=== PATIENT | male | born 1990 | race Caucasian/White ===

== ENCOUNTER 2023-02-24 06:36 | Emergency (ER) | payer MEDICAID, SELFPAY ==
--- NOTE | ~2023-02-24 | CT_ITS ---
EXAMINATION: CT ABDOMEN AND PELVIS WITHOUT CONTRAST CLINICAL INFORMATION: Left groin pain and hematuria. Question kidney stone. COMPARISON: None available. TECHNIQUE: Multidetector volumetric imaging was performed from the superior aspect of the liver through the pubic symphysis. Sagittal and coronal reformatted images were obtained on the technologist's workstation. This CT examination was performed using dose optimization techniques as appropriate, variously including the following: *Automated exposure control *Adjustment of mA and/or kV according to patient size (this includes techniques or standardized protocols for targeted exams where dose is matched to indication/reason for exam; i.e. extremities or head) *Use of iterative reconstruction technique DLP: 497 mGy-cm FINDINGS: LUNG BASES: The visualized lung bases are unremarkable. LIVER, GALLBLADDER, AND BILIARY TREE: The liver is normal in size, shape, and attenuation. No focal hepatic lesion or biliary ductal dilatation is present. The gallbladder is unremarkable with no evidence of radiopaque gallstones, gallbladder wall thickening, or obvious pericholecystic inflammatory changes. PANCREAS: Unremarkable. SPLEEN: Unremarkable. ADRENAL GLANDS: Unremarkable. KIDNEYS AND URETERS: The kidneys are normal in size, shape, and attenuation. No hydronephrosis, hydroureter, or calculi seen. No perinephric stranding. BLADDER: Unremarkable. GASTROINTESTINAL TRACT: The small and large bowel are unremarkable. The appendix is unremarkable. ABDOMINAL WALL: No significant hernia is appreciated. LYMPH NODES: Normal. VASCULAR: Unremarkable. PELVIC VISCERA: There is a small 2 mm calcification in the central prostate gland. It is difficult to exclude a stone in the prostatic urethra. Clinical correlation recommended. OSSEOUS STRUCTURES: Unremarkable. CT/CT abdomen pelvis wo IV con IMPRESSION: No renal or ureteral stone or hydronephrosis seen. Small 2 mm calcification in the central prostate gland which could possibly represent a stone in the prostatic urethra. Clinical correlation recommended. Fleischner guidelines were followed.
--- NOTE | ~2023-02-24 | US_ITS ---
EXAMINATION: US SCROTUM CLINICAL INFORMATION: Left groin pain. Question hernia.. COMPARISON: None available. TECHNIQUE: A sonogram of the scrotum was performed assessing contreras-scale appearance and color Doppler flow. Spectral Doppler analysis of the arterial and venous flow were performed in the testes bilaterally. FINDINGS: RIGHT: Right testicle measures 4.6 x 2.5 x 3 cm, volume 18 mL. No focal testicular parenchymal lesions are visualized. Spectral Doppler analysis of the arterial and venous flow is normal in the right testis. Right epididymal head is normal in size. No varicocele small right hydrocele. No right varicocele. Right epididymal Doppler flow is normal. There is a small right appendix testis. LEFT: Left testicle measures 3.1 x 2.2 x 3.1 cm, volume 11.2 mL. No focal testicular parenchymal lesions are visualized. Spectral Doppler analysis of the arterial and venous flow is normal in the left testis. Left epididymal head is normal in size. No varicocele. Moderate left hydrocele. This appears slightly complex with dependent echogenic debris. There is a small calcification or scrotal dayna likely related to old trauma or infection. Left epididymal Doppler flow is normal. There is a small left inguinal hernia measuring 2.4 cm. US/US scrotum IMPRESSION: Small left inguinal hernia measuring 2.4 cm. Moderate complex left hydrocele.
--- NOTE | ~2023-02-24 | US_ITS ---
EXAMINATION: US SCROTUM CLINICAL INFORMATION: Left groin pain. Question hernia.. COMPARISON: None available. TECHNIQUE: A sonogram of the scrotum was performed assessing contreras-scale appearance and color Doppler flow. Spectral Doppler analysis of the arterial and venous flow were performed in the testes bilaterally. FINDINGS: RIGHT: Right testicle measures 4.6 x 2.5 x 3 cm, volume 18 mL. No focal testicular parenchymal lesions are visualized. Spectral Doppler analysis of the arterial and venous flow is normal in the right testis. Right epididymal head is normal in size. No varicocele small right hydrocele. No right varicocele. Right epididymal Doppler flow is normal. There is a small right appendix testis. LEFT: Left testicle measures 3.1 x 2.2 x 3.1 cm, volume 11.2 mL. No focal testicular parenchymal lesions are visualized. Spectral Doppler analysis of the arterial and venous flow is normal in the left testis. Left epididymal head is normal in size. No varicocele. Moderate left hydrocele. This appears slightly complex with dependent echogenic debris. There is a small calcification or scrotal dayna likely related to old trauma or infection. Left epididymal Doppler flow is normal. There is a small left inguinal hernia measuring 2.4 cm. US/US scrotum doppler IMPRESSION: Small left inguinal hernia measuring 2.4 cm. Moderate complex left hydrocele.
[2023-02-24 06:44] VITALS: BP 128/80; PULSE 65; RESP 16; TEMP 36.8; O2SAT 97; BMI 23.0
--- NOTE | 2023-02-24 07:14 | ED_ITS ---
HPI - Male Genitourinary General Chief complaint: General Medical Stated complaint: quest hernia groin pain lump Time Seen by Provider: 02/24/23 06:44 Source: patient Mode of arrival: ambulatory Limitations: language barrier (Romanian Speaking ) History of Present Illness HPI Narrative: 32yoM with a PMHx asthma, anxiety and depression who is presenting to the ER with complaints of left groin pain has been present for approximately 1 week. 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 He denies any direct injury to that site. Significant other at bedside reports that his urine has been a little darker in color although it is normal today. He reports he has never had this pain in the past. He denies any fevers, chills, nausea or vomiting, flank pain, back pain, abdominal pain, dysuria hematuria, abnormal penile discharge, rashes or any other symptoms complaints or concerns at this time. MD Complaint: other (Left groin pain) Onset (ago): week(s) (1) Duration: constant Location: left inguinal region Severity: mild Quality: aching Relieving factors: none Exacerbating factors: palpation and movement Context: lifting Associated symptoms: Reports denies other symptoms Related Data Sexually active: Yes Allergies Allergy/AdvReac Type Severity Reaction Status Date / Time risperidone [From RISPERDAL] Allergy Unknown UNKNOWN Unverified 07/01/20 18:59 Review of Systems Review of Systems: Constitutional : No Weight loss, No Fever, No Chills, No Night Sweats, No Fatigue, NoMalaise ENT/Mouth: No ear pain, No sore throat, No Difficulty swallowing Cardiovascular : No Chest Pain, No SOB, No Dyspnea on Exertion, No Orthopnea, NoEdema, No Palpitations Respiratory : No Cough, No Sputum, No Wheezing, No Dyspnea Gastrointestinal : No Nausea, No Vomiting, No Diarrhea, + abdominal Pain, No Hematochezia, No Melena Genitourinary : + left groin pain, No testicular pain, No irregular bleeding, No Dysuria, No Urinary Frequency, No Hematuria,No Urinary Incontinence, No Urgency, No Flank Pain Musculoskeletal : No joint pain, No Myalgias, No Joint Swelling Skin : No Skin Lesions, No rash Neuro : No Weakness, No Numbness, No Paresthesias, No Loss of Consciousness, NoDizziness, No Headache Psych : No Social Issues, Heme/Lymph: No Bruising, No Bleeding,No Lymphadenopathy Endocrine : No Polyuria, No Polydipsia, No Temperature Intolerance PATIENT DENIES ANY THOUGHTS OF STDS Yes all other systems are reviewed and are negative [facility] Past Medical History Attestation statement: The following information was validated with the patient. Source: old records reviewed, obtained from family and nursing notes reviewed Social History Social History Smoked in Last 30 Days: No Use of substances other than those prescribed or required for medical reasons: Yes Substance Use Type: Marijuana Advance Directives: No Advance Directives Information Provided: No Physical Exam Vital Signs: Vital Signs: Last Vital Signs Temp 98.3 F 02/24/23 06:44 Pulse 58 02/24/23 09:20 Resp 16 02/24/23 09:20 BP 112/62 02/24/23 09:20 Pulse Ox 99 02/24/23 09:20 O2 Del Method Room Air 02/24/23 09:20 BMI result Body Mass Index 23.0 vital signs have been reviewed as normal and appeared to be correct. Blood pressure normal. Heart rate normal. Respiration rate normal. Temperature normal. Oxygen saturation normal. Appearance: Alert. Oriented X3. No acute distress. Head: Normal external exam. Normocephalic. Atraumatic. Eyes: PERRLA. EOMI. Conjunctiva and sclera normal. Eyelids normal. ENT: Pharynx normal. Uvula midline. Moist mucous membranes. Neck: Normal inspection. Neck supple. FROM. No adenopathy. No meningeal signs. CVS: Normal heart rate and rhythm. Heart sound normal. No murmurs noted. Pulses normal throughout. Respiratory: No respiratory distress. Painless inspiration. Breath sounds normal. No wheezes/rales/rhonchi noted. Chest nontender. No accessory muscle usage noted or decreased air movement noted. Abdomen: Soft and nontender. Bowel sounds normal in all 4 quadrants. No distention noted. No organomegaly noted. No visible injury noted. : Chaperoned by MICH Nino. Normal external exam. No masses/lumps/ecchymosis/edema/erythema/lacerations/lesions/vesicles/induration or tenderness noted. No hernia noted. No inguinal lymphadenopathy noted. Al though patient reports + left inguinal pain. Normal penis free of discharge. The scrotum is normal. Testicles are both descended bilaterally and appear normal. + left sided hydrocele. No right sided hydrocele noted. No scrotal mass/swelling noted. No varicocele. Epididymides normal. No blue dot sign. Back: No CVA tenderness. Full range of motion noted. Skin: Skin warm and dry. Normal skin color. Normal skin turgor. No rashes/lesions/lacerations noted. Extremities: Extremities exhibit normal range of motion. Extremities nontender. Neuro: Oriented X 3. No motor deficit. No sensory deficit. Reflexes normal. Course Course Course Narrative: 7am - 32yoM presenting with left groin pain believes he might have a hernia due to he has felt it. On exam there is no obvious hernia on my exam. No inguinal lymphadenopathy. He is noted to have of left hydrocele. Right scrotum appears normal. No lesions or discharge from the penis. Dealer Sales Manager was present my PA student at bedside. also at bedside. Patient's abdomen is soft nontender. No CVA tenderness is noted. Differential diagnosis includes left inguinal hernia versus UTI versus kidney stone. I considered test torsion; F Gangrene; incarc hernia; & other med/surg emerg but the hx, exam & data did not support the diagnoses. The pt was advised that some diseases present atypically. Plan: UA and scrotal/groin ultrasound. And re-evaluate. Reevaluation(s) Reevaluation #1: Labs reviewed and labs are all within normal limits. Left scrotal/inguinal ultrasound revealed small left inguinal hernia measuring 2.4 cm in a moderate complex left hydrocele. CT scan of abdomen pelvis without IV revealed possible 2 mm calcification in the central prostate gland which could possibly represent a stone in the prostatic urethra. Although when I went back into the room the patient has the eloped. I called the patient and he reported he had to go to work and I told him all his diagnosis he understands that he should follow-up with Urology and General surgery especially Urology due to his large hydrocele and he wants to continue having kids. Patient understood this and agrees to come back for his discharge paperwork either today or tomorro w and they will be in the motel front desk clerk. Time: 09:22 Medical Decision Making Lab Data MDM Lab Attestation statement: I reviewed the patient's lab results. 02/24/23 09:25 02/24/23 09:25 Labs: Lab Results 02/24/23 02/24/23 02/24/23 Range/Units 08:06 09:25 09:25 WBC 10.5 (4.8-10.8) X10*3/uL RBC 4.77 (4.60-5.80) X10*6/uL Hgb 13.9 L (14.0-18.0) g/dl Hct 42.0 (42.0-52.0) % MCV 88.1 (80.0-98.0) fL MCH 29.1 (27.0-33.0) pg MCHC 33.1 (31.0-36.0) g/dl RDW 12.9 (11.0-16.0) % Plt Count 218 (160-400) X10*3/uL MPV 10.9 (9.4-12.4) fL Immature Gran % (Auto) 0.4 (0.0-0.4) % Neut % (Auto) 69.2 (45-73) % Lymph % (Auto) 21.6 (20-40) % [place] % (Auto) 7.4 (2-11) % Eos % (Auto) 1.0 (0-4) % Baso % (Auto) 0.4 (0-2) % Lymph # (Auto) 2.3 (1.2-4.9) X10*3/uL [place] # (Auto) 0.8 (0.1-1.2) X10*3/uL Eos # (Auto) 0.1 (0.0-0.4) X10*3/uL Baso # (Auto) 0.0 (0.0-0.2) X10*3/uL Abs Immat Gran (auto) 0.04 H (0.00-0.03) X10*3/uL Absolute Neuts (auto) 7.3 (2.0-8.3) x10*3/uL Absolute Nucleated RBC 0.000 (0.0-0.012) X10*3/uL Nucleated RBC % (auto) 0.0 (0.0-0.2) /100WBC Sodium 142 (135-145) mmol/L Potassium 4.5 (3.3-5.1) mmol/L Chloride 110 H (96-108) mmol/L Carbon Dioxide 26 (22-29) mmol/L Anion Gap 11 L (12-20) BUN 12 (9-16) mg/dL Creatinine 1.01 (0.5-1.4) mg/dL Estim Creat Clear Calc 105.7 Estimated GFR > 60 Random Glucose 93 (60-115) mg/dL Calcium 9.0 (8.4-10.2) mg/dL Magnesium 2.0 (1.6-2.6) mg/dL Total Bilirubin 0.5 (0.0-1.0) mg/dL AST 16 (5-37) U/L ALT 15 (0-40) U/L Alkaline Phosphatase 80 (39-117) U/L Total Protein 6.6 (6.5-8.0) g/dL Albumin 4.1 (3.5-5.0) g/dL Urine Color Yellow Urine Appearance Clear Urine pH 6.0 (5.0-9.0) Ur Specific [place] 1.020 (1.005-1.025) Urine Protein Negative (Neg-Trace) mg/dL Urine Glucose (UA) Negative (Negative) mg/dL Urine Ketones Negative (Negative) mg/dL Urine Blood Small (1+) H (Negative) Urine Nitrite Negative (Negative) Ur Leukocyte Esterase Negative (Negative) Urine RBC 3-5 H (0-2) /HPF Urine WBC 0-5 (0-5) /HPF Ur Squamous Epith Cells 0-2 (0-2) /HPF Urine Bacteria None Seen (None Seen) Hyaline Casts 0-2 (0-2) /LPF Independent Interpretation I performed an independent interpretation of an: Ultrasound (Reviewed myself agreeable with radiologist report) and CT Scan (Reviewed myself agreeable with radiologist report) Radiology Impression Discussion of test interpretation with radiology: I have reviewed the radiologist's reading. Radiologist Impression: FINDINGS: LUNG BASES: The visualized lung bases are unremarkable.? LIVER, GALLBLADDER, AND BILIARY TREE: The liver is normal in size, shape, and attenuation. No focal hepatic lesion or biliary ductal dilatation is present. The gallbladder is unremarkable with no evidence of radiopaque gallstones, gallbladder wall thickening, or obvious pericholecystic inflammatory changes.? PANCREAS: Unremarkable.? SPLEEN: Unremarkable.? ADRENAL GLANDS: Unremarkable.? KIDNEYS AND URETERS: The kidneys are normal in size, shape, and attenuation. No hydronephrosis, hydroureter, or calculi seen. No perinephric stranding. ? BLADDER: Unremarkable.? GASTROINTESTINAL TRACT: The small and large bowel are unremarkable. The appendix is unremarkable.? ABDOMINAL WALL: No significant hernia is appreciated.? LYMPH NODES: Normal. VASCULAR: Unremarkable. PELVIC VISCERA: There is a small 2 mm calcification in the central prostate gland. It is difficult to exclude a stone in the prostatic urethra. Clinical correlation recommended.? OSSEOUS STRUCTURES: Unremarkable.? CT/CT abdomen pelvis wo IV con IMPRESSION: No renal or ureteral stone or hydronephrosis seen. Small 2 mm calcification in the central prostate gland which could possibly represent a stone in the prostatic urethra. Clinical correlation recommended. ? Fleischner guidelines were followed. FINDINGS: RIGHT: Right testicle measures 4.6 x 2.5 x 3 cm, volume 18 mL. No focal testicular parenchymal lesions are visualized. Spectral Doppler analysis of the arterial and venous flow is normal in the right testis. Right epididymal head is normal in size. No varicocele small right hydrocele. No right varicocele. Right epididymal Doppler flow is normal. There is a small right appendix testis. LEFT: Left testicle measures 3.1 x 2.2 x 3.1 cm, volume 11.2 mL. No focal testicular parenchymal lesions are visualized. Spectral Doppler analysis of the arterial and venous flow is normal in the left testis. Left epididymal head is normal in size. No varicocele. Moderate left hydrocele. This appears slightly complex with dependent echogenic debris. There is a small calcification or scrotal dayna likely related to old trauma or infection. Left epididymal Doppler flow is normal. There is a small left inguinal hernia measuring 2.4 cm. US/US scrotum IMPRESSION: Small left inguinal hernia measuring 2.4 cm. Moderate complex left hydrocele. Discharge Plan Discharge Clinical Impression: Left hydrocele, Inguinal hernia, left Patient Disposition: Home, Self-Care Instructions: Hydrocele (ED), Inguinal Hernia (ED) Referrals: [facility] [place] General Surgeons [Provider Group] (Call to make a follow-up appointment for your inguinal hernia) [facility] [place] Urology Services [Provider Group] (Call to make a follow-up appointment for your hydrocele) Name,MD Jose Cruz [Primary Care Provider] - 2 days Print Language: Romanian
--- NOTE | 2023-02-24 07:16 | PC.NURSE ---
assumed care of this pt at 0700. pt a&o x4, reporting 11/10 pain to the left groin. pt resting quietly on stretcher with friend at bedside. in no apparent distress, awaiting ultrasound. marry
[2023-02-24 08:27] LABS: Appearance Urine Clear; Color Urine Yellow; Glucose Urine UA Negative (Negative); Leukocyte Esterase Urine Negative (Negative); Nitrite Urine Negative (Negative); UMIC TRIGGER UACC YES; Urine Blood Small (1+) (Negative); Urine Ketones Negative (Negative); Urine Protein Negative (Neg-Trace)
[2023-02-24 08:39] LABS: Bacteria Urine None Seen (None Seen); Hyaline Casts Urine 0-2 /LPF (0-2); Squamous Epithelial Cell Urine 0-2 /HPF (0-2); WBC Urine 0-5 /HPF (0-5)
[2023-02-24 09:20] VITALS: BP 112/62; PULSE 58; RESP 16; O2SAT 99
[2023-02-24 09:29] LABS: MANUAL DIFF FLAG NO
[2023-02-24 09:47] LABS: Alanine Aminotransferase 15 U/L (0-40); Albumin Level 4.1 g/dL (3.5-5.0); Alkaline Phosphatase 80 U/L (39-117); Anion Gap 11 (12-20); Aspartate Amino Transferase 16 U/L (5-37); Bilirubin Total 0.5 mg/dL (0.0-1.0); Blood Urea Nitrogen 12 mg/dL (9-16); Carbon Dioxide 26 mmol/L (22-29); Chloride 110 mmol/L (96-108); Creatinine Clr Calc Pharmacy 105.7; Estimated Glomerular Filt Rate > 60; Glucose Random 93 mg/dL (60-115); Potassium 4.5 mmol/L (3.3-5.1); Sodium 142 mmol/L (135-145); Total Protein 6.6 g/dL (6.5-8.0)
[2023-02-24 09:48] LABS: Basophils Percent Auto 0.4 % (0-2); Eosinophils Absolute Auto 0.1 X10*3/uL (0.0-0.4); Hemoglobin 13.9 g/dl (14.0-18.0); Imm Gran Abs Auto 0.04 X10*3/uL (0.00-0.03); Imm Gran Pct Auto 0.4 % (0.0-0.4); Lymphocytes Absolute Auto 2.3 X10*3/uL (1.2-4.9); Lymphocytes Percent Auto 21.6 % (20-40); Mean Corpuscular HGB Conc 33.1 g/dl (31.0-36.0); Mean Corpuscular Hemoglobin 29.1 pg (27.0-33.0); Mean Corpuscular Volume 88.1 fL (80.0-98.0); Mean Platelet Volume 10.9 fL (9.4-12.4); Monocytes Absolute Auto 0.8 X10*3/uL (0.1-1.2); Monocytes Percent Auto 7.4 % (2-11); Neutrophils Absolute Auto 7.3 x10*3/uL (2.0-8.3); Neutrophils Percent Auto 69.2 % (45-73); Platelet Count 218 X10*3/uL (160-400); Red Blood Count 4.77 X10*6/uL (4.60-5.80); Red Cell Distribution Width 12.9 % (11.0-16.0); White Blood Count 10.5 X10*3/uL (4.8-10.8)
--- NOTE | 2023-02-24 11:13 | PC.NURSE ---
pt agitated/anxious asking for process to hurry up because of a side job he has to get to. pt ended up eloping before results of CT scan came bask. MICH [place] talked to pt over phone about results and pt agreed to come back later today or early tomorrow for discharge paperwork/education/referral to urology.
== END 2023-02-24 11:16 | disposition home or self-care (01) ==
PROVIDERS: Physician Assistant Medical; Emergency Provider Emergency Medicine Emergency Medical Services; PCP Internal Medicine Geriatric Medicine
DX: N43.3 Hydrocele, unspecified (principal); K40.90 Unilateral inguinal hernia, without obstruction or gangrene, not specified as recurrent; R10.32 Left lower quadrant pain
CPT/HCPCS: 36415; 74176; 76870; 80053; 81001; 83735; 85025; 93975; 99284

== ENCOUNTER → 2023-03-13 10:53 | Outpatient (BNVA) | payer MEDICAID, SELFPAY | PROVIDERS: PCP Internal Medicine Geriatric Medicine; Referring Provider Emergency Medicine; Visit Provider Surgery | DX: K40.90 Unilateral inguinal hernia, without obstruction or gangrene, not specified as recurrent (principal) | CPT/HCPCS: 99202 ==

== ENCOUNTER 2023-08-16 11:20 | Emergency (ER) | payer MEDICAID, SELFPAY ==
--- NOTE | ~2023-08-16 | XR_ITS ---
EXAMINATION: XR CHEST CLINICAL INFORMATION: Chest pain after fall COMPARISON: None available. TECHNIQUE: 2 views of the chest were obtained. FINDINGS: No significant abnormality is noted involving the heart, lungs, mediastinum, bony thorax or soft tissues. XR/XR chest 2V IMPRESSION: Unremarkable examination.
--- NOTE | 2023-08-16 11:22 | ECG_ITS ---
Test Reason : CP Blood Pressure : / mmHG Vent. Rate : 083 BPM Atrial Rate : 083 BPM P-R Int : 132 ms QRS Dur : 098 ms QT Int : 350 ms P-R-T Axes : 065 084 037 degrees QTc Int : 411 ms Normal sinus rhythm with sinus arrhythmia Minimal voltage criteria for LVH, may be normal variant ( [place] product ) Abnormal ECG No previous ECGs available Referred By: Generic ED Physician Electronically Signed By:MAYA FAJARDO MD
[2023-08-16 11:36] VITALS: BP 133/81; PULSE 99; RESP 20; TEMP 36.9; O2SAT 100; BMI 27.3
--- NOTE | 2023-08-16 11:40 | ED.CHESTPAIN ---
HPI - Chest Pain General Chief Complaint: Fall Stated Complaint: fell on stairs chest and rib pain Time Seen by Provider: 08/16/23 11:46 Source: patient Mode of arrival: ambulatory Limitations: no limitations History of Present Illness HPI narrative: Patient is a 33 year old assigned male at with a history of an enlarged heart presenting to the emergency department today with left sided chest pain. Patient states that he was coming down the stairs at his place, fell, and now has left sided chest pain. Patient states that he did use cocaine 2 days ago. Patient states that he did not hit his head or have any loss of consciousness. Patient states that he was told when he was 13 years old that he has a large heart. Patient denies any dizziness, lightheadedness, abdominal pain, nausea, vomiting, fever, chills, blurry vision, double vision, loss of vision, chest pain, difficulty breathing, shortness of breath, back pain, night sweats, pain with urination, increased urinary frequency, increased urinary urgency, blood in his urine or stool, syncope or a near syncopal episode, bowel incontinence, bladder incontinence, bowel retention, bladder retention, or any other complaints at this time. MD complaint: chest pain Onset (ago): hour(s) Pain radiation: none Treatment prior to arrival: none Related Data Home Medications Medication Instructions Recorded Confirmed No Known Home Meds 03/13/23 04/24/23 Allergies Allergy/AdvReac Type Severity Reaction Status Date / Time risperidone [From RISPERDAL] Allergy Unknown UNKNOWN Unverified 03/13/23 11:04 Review of Systems Constitutional: Constitutional: Reports no additional constitutional complaints, Denies chills, Denies fever(s) and Denies night sweats Eyes: Eyes: Reports no additional eye complaints, Denies blurry vision, Denies change in vision, Denies diplopia, Denies eye discharge, Denies loss of vision and Denies eye pain ENT: Denies dizziness Cardiovascular: Cardiovascular: Reports no additional cardiovascular complaints, Reports chest pain, Denies lightheadedness, Denies Loss of Consciousness and Denies dyspnea Respiratory: Respiratory: Reports no additional respiratory complaints and Denies dyspnea Gastrointestinal: Gastrointestinal: Reports no additional gastrointestinal complaints, Denies abdominal pain, Denies melena, Denies hematochezia, Denies change in bowel habits and Denies change in stool character Genitourinary: Genitourinary: Reports no additional male genitourinary complaints, Denies hematuria, Denies oliguria, Denies difficulty urinating, Denies dysuria, Denies urinary frequency, Denies urinary hesitancy, Denies urinary incontinence and Denies urinary urgency Musculoskeletal: Musculoskeletal: Reports no additional musculoskeletal complaints, Denies numbness and Denies tingling Neurologic: Denies dizziness, Denies loss of vision, Denies numbness and Denies tingling Psychiatric: Psychiatric: Reports no additional psychiatric complaints Endocrine: Endocrine: Reports no additional endocrine complaints Hematologic/Lymphatic: Hematologic/Lymphatic: Reports no additional hematologic/lymphatic complaints Allergic/Immunologic: Allergic/Immunologic: Reports no additional allergic/immunologic complaints [facility] Past Medical History Attestation statement: The following information was validated with the patient. Source: old records reviewed and nursing notes reviewed Medical History Anxiety Depression Asthma Surgical History Surgical history unknown Social History Social History Alcohol intake: never Substance Use Type: Marijuana Advance Directives: No Advance Directives Information Provided: No Physical Exam Vital Signs: Vital Signs: Last Vital Signs Temp 98.2 F 08/16/23 15:40 Pulse 68 08/16/23 15:40 Resp 17 08/16/23 15:40 BP 140/76 H 08/16/23 15:40 Pulse Ox 98 08/16/23 15:40 O2 Del Method Room Air 08/16/23 15:40 BMI result Body Mass Index 27.3 Const: General: cooperative, no acute distress, alert and awake Nutritional Appearance: well nourished Orientation/consciousness: patient oriented x3 Limitations: no limitations HEENT: Head: Yes normal to inspection and Yes atraumatic Ears: hearing grossly normal bilaterally and external ears normal General nose exam: Normal external nose present, no nasal discharge noted and no epistaxis Face and sinus: Yes normal facial exam, No abrasion and No laceration Mouth: Normal oral and palatal mucosa present, no drooling and no muffled voice Eyes: General: appearance normal, both eyes and all related structures Periorbital: periorbital findings normal Eyelids: Yes eyelids normal Conjunctivae: conjunctivae normal Pupils: Equal, round and reactive pupils present EOM: EOMs intact bilaterally Neck: Neck: Yes normal visual inspection, Yes full ROM and Yes no lymphadenopathy Chest: Chest palpation & inspection: normal inspection of the chest Resp: Effort & Inspection: normal respiratory effort and able to speak in complete sentences Auscultation: clear to auscultation bilaterally Cardio: Rate: regular rate Rhythm: regular rhythm GI: Inspection: Yes normal to inspection Neuro: General: patient oriented x3 and moves all extremities Cranial nerves: Yes Equal, round and reactive pupils present Cognition (Neuro): normal cognition Motor exam (neuro): 5/5 motor strength present throughout Sensory Exam: Normal double simultaneous stimulation for sensation Coordination: [id number] test normal Extrem: General: Yes normal to inspection, Yes full ROM and Yes capillary refill normal Psych: Appearance: grossly normal Mental Status: mental status grossly normal Affect: normal affect Attitude: cooperative Thought process: Normal thought process present Thought content: Normal thought content present Insight: Good insight present (Psych) Course Course Course Narrative: Patient complains of left-sided chest pain after a fall this morning, he fell forward on slip relieves and put his arms out and is not sure if he hit the chest wall Pain is reproducible with touch movement and deep breath in left anterior lower chest wall EKg and chest x-ray ordered as well as lab This is rapid medical exam done in triage prior to full evaluation of patient and any results in ER Medications Administered Discontinued Medications Generic Name Dose Route Start Last Admin Trade Name Freq PRN Reason Stop Dose Admin Aspirin 324 mg 08/16/23 14:33 08/16/23 14:50 Aspirin 81 Mg Tab.Chew PO 08/16/23 14:34 324 mg ONCE ONE Administration Ketorolac Tromethamine 15 mg 08/16/23 12:11 08/16/23 12:19 Ketorolac Tromethamine 15 Mg/Ml Vial IM 08/16/23 12:12 15 mg ONCE ONE Administration Medical Decision Making Medical Decision Making [facility] Narrative: Patient is a 33 year old assigned male at with a history of an enlarged heart presenting to the emergency department today with left sided chest pain. Patient's physical exam was unremarkable. Patient's blood work was unremarkable, including serial troponins. Patient's urine showed no acute process but was positive for cocaine and marijuanna. Patient's EKG was unremarkable. Patient's chest x-ray showed no acute process. I consulted with my attending physician, Dr. Randall, who recommended discharging the patient. I explained my physical exam findings as well as all test results to the patient. I answered all questions asked by the patient. Patient received IM Toradol and PO Aspirin which he stated helped his symptoms significantly. I stressed the importance of the patient taking his medication as prescribed. I stressed the importance of the patient following up with his primary care provider and a junior graphic designer. I stressed the importance of the patient returning to the emergency department immediately if his symptoms were to worsen or if he were to develop any dizziness, shortness of breath, difficulty breathing, chest pain, blurry vision, loss of vision, nausea, vomiting, abdominal pain, fever, chills, back pain, or any other complaints. Patient verbalized agreement and understanding with this treatment plan and discharge. Differential Diagnosis Differential Diagnoses: The differential diagnosis associated with the presentation includes Chest pain NSTEMI STEMI Fall Admission/Observation Consideration of admission/observation: Escalation of care including admission/observation considered Patient would have been admitted to the hospital had his work up had any findings where hospital admission was appropriate and his clinical presentation warranted hospital admission. Lab Data MDM Lab Attestation statement: I reviewed the patient's lab results. My interpretation of these studies and their corresponding values is that they are grossly normal. 08/16/23 11:47 08/16/23 11:47 Labs: Lab Results 08/16/23 08/16/23 08/16/23 Range/Units 11:47 13:46 15:20 WBC 14.5 H (4.8-10.8) X10*3/uL RBC 5.09 (4.60-5.80) X10*6/uL Hgb 14.9 (14.0-18.0) g/dl Hct 43.5 (42.0-52.0) % MCV 85.5 (80.0-98.0) fL MCH 29.3 (27.0-33.0) pg MCHC 34.3 (31.0-36.0) g/dl RDW 12.8 (11.0-16.0) % Plt Count 234 (160-400) X10*3/uL MPV 10.9 (9.4-12.4) fL Immature Gran % (Auto) 0.4 (0.0-0.4) % Neut % (Auto) 83.3 H (45-73) % Lymph % (Auto) 11.0 L (20-40) % [place] % (Auto) 4.9 (2-11) % Eos % (Auto) 0.1 (0-4) % Baso % (Auto) 0.3 (0-2) % Lymph # (Auto) 1.6 (1.2-4.9) X10*3/uL [place] # (Auto) 0.7 (0.1-1.2) X10*3/uL Eos # (Auto) 0.0 (0.0-0.4) X10*3/uL Baso # (Auto) 0.0 (0.0-0.2) X10*3/uL Abs Immat Gran (auto) 0.06 H (0.00-0.03) X10*3/uL Absolute Neuts (auto) 12.1 H (2.0-8.3) x10*3/uL Absolute Nucleated RBC 0.000 (0.0-0.012) X10*3/uL Nucleated RBC % (auto) 0.0 (0.0-0.2) /100WBC Sodium 143 (135-145) mmol/L Potassium 3.4 D (3.3-5.1) mmol/L Chloride 110 H (96-108) mmol/L Carbon Dioxide 26 (22-29) mmol/L Anion Gap 10 L (12-20) BUN 11 (9-16) mg/dL Creatinine 0.88 (0.5-1.4) mg/dL Estim Creat Clear Calc 117.1 Estimated GFR > 60 Random Glucose 103 (60-115) mg/dL Calcium 9.8 D (8.4-10.2) mg/dL Troponin I High Sens 4.8 10.2 D 10.9 (<3.5-35.0) ng/L Urine Opiates Screen Not Detected (Not Detect) Urine Fentanyl Screen Not Detected (Not Detect) Ur Barbiturates Screen Not Detected (Not Detect) Ur Phencyclidine Scrn Not Detected (Not Detect) Ur Amphetamines Screen Not Detected (Not Detect) U Benzodiazepines Scrn Not Detected (Not Detect) Urine Cocaine Screen POSITIVE H (Not Detect) U Marijuana (THC) Screen POSITIVE H (Not Detect) Independent Interpretation I performed an independent interpretation of an: EKG and Plain X-Ray Interpretation: My interpretation is in agreement with the radiologist's impression of this imaging study. EXAMINATION: XR CHEST CLINICAL INFORMATION: Chest pain after fall COMPARISON: None available. TECHNIQUE: 2 views of the chest were obtained. FINDINGS: No significant abnormality is noted involving the heart, lungs, mediastinum, bony thorax or soft tissues. XR/XR chest 2V IMPRESSION: Unremarkable examination. Dictated By: Saurabh Lobo MD Signed By: Electronically signed by Saurabh Lobo MD 08/16/23 1234 Vent. Rate: 083 BPM Atrial Rate: 083 BPM P-R Int: 132 ms QRS Dur: 098 ms QT Int: 350 ms P-R-T Axes: 065 084 037 degrees QTc Int: 411 ms Normal sinus rhythm with sinus arrhythmia Minimal voltage criteria for LVH, may be normal variant ( Power product ) Abnormal ECG No previous ECGs available Electronically Signed By:MAYA FAJARDO MD Dictated By: Luis Fajardo MD Signed By: Electronically signed by Luis Fajardo MD 08/16/23 1230 Radiology Impression Discussion of test interpretation with radiology: I have reviewed the radiologist's reading. Critical Care Time Critical Care Time Critical Care Time: Yes Total Critical Care Time: 35 Attestation: I spent 35 minutes of Critical Care Time with this patient. This does not include time spent on separately reported billable procedures. Discharge Plan Discharge Clinical Impression: Chest pain Patient Disposition: Home, Self-Care Instructions: Chest Pain (DC) Additional Instructions: Follow up with your primary care provider and a junior graphic designer. Return to the emergency department immediately if your symptoms worsen or if you develop any dizziness, shortness of breath, difficulty breathing, chest pain, blurry vision, loss of vision, nausea, vomiting, abdominal pain, fever, chills, back pain, or any other complaints. Prescriptions: No Action No Known Home Meds Referrals: [facility] – [place], [place] [facility] [Provider Group] (Call to establish and follow up with a junior graphic designer. ) Name,MD Jose Cruz [Primary Care Provider] - Stand Alone Forms: Work/School Release Interventions: ED Discharge Assessment Last Done: 08/16/23 16:02 Discharge Date/Time: 08/16/23 16:08 Print Language: Irish
[2023-08-16 11:51] LABS: MANUAL DIFF FLAG NO
[2023-08-16 11:52] LABS: Basophils Percent Auto 0.3 % (0-2); Eosinophils Percent Auto 0.1 % (0-4); Hematocrit 43.5 % (42.0-52.0); Hemoglobin 14.9 g/dl (14.0-18.0); Imm Gran Abs Auto 0.06 X10*3/uL (0.00-0.03); Imm Gran Pct Auto 0.4 % (0.0-0.4); Lymphocytes Absolute Auto 1.6 X10*3/uL (1.2-4.9); Mean Corpuscular HGB Conc 34.3 g/dl (31.0-36.0); Mean Corpuscular Hemoglobin 29.3 pg (27.0-33.0); Mean Corpuscular Volume 85.5 fL (80.0-98.0); Mean Platelet Volume 10.9 fL (9.4-12.4); Monocytes Absolute Auto 0.7 X10*3/uL (0.1-1.2); Monocytes Percent Auto 4.9 % (2-11); Neutrophils Absolute Auto 12.1 x10*3/uL (2.0-8.3); Neutrophils Percent Auto 83.3 % (45-73); Platelet Count 234 X10*3/uL (160-400); Red Blood Count 5.09 X10*6/uL (4.60-5.80); Red Cell Distribution Width 12.8 % (11.0-16.0); White Blood Count 14.5 X10*3/uL (4.8-10.8)
[2023-08-16 12:04] LABS: Anion Gap 10 (12-20); Blood Urea Nitrogen 11 mg/dL (9-16); Calcium 9.8 mg/dL (8.4-10.2); Carbon Dioxide 26 mmol/L (22-29); Chloride 110 mmol/L (96-108); Creatinine Clr Calc Pharmacy 117.1; Estimated Glomerular Filt Rate > 60; Glucose Random 103 mg/dL (60-115); Potassium 3.4 mmol/L (3.3-5.1); Sodium 143 mmol/L (135-145)
[2023-08-16 12:13] LABS: Troponin-I High Sensitivity 4.8 ng/L (<3.5-35.0)
[2023-08-16] MEDS: Ketorolac Tromethamine 15 MG/ML VIAL IM (12:19)
[2023-08-16 13:16] VITALS: PULSE 76; RESP 16; O2SAT 99
[2023-08-16 14:24] LABS: Troponin-I High Sensitivity 10.2 ng/L (<3.5-35.0)
[2023-08-16] MEDS: Aspirin 81 MG TAB.CHEW 324 MG PO (14:50)
[2023-08-16 15:35] LABS: Amphetamine Screen Urine Not Detected (Not Detect); Barbiturates, Urine Not Detected (Not Detect); Benzodiazepines Screen Urine Not Detected (Not Detect); Cannabinoid Screen Urine POSITIVE (Not Detect); Cocaine Screen Urine POSITIVE (Not Detect); Fentanyl, urine Not Detected (Not Detect); Opiate Screen Urine Not Detected (Not Detect); Phencyclidine Screen Urine Not Detected (Not Detect)
[2023-08-16 15:40] VITALS: BP 140/76; PULSE 68; RESP 17; TEMP 36.8; O2SAT 98
[2023-08-16 15:48] LABS: Troponin-I High Sensitivity 10.9 ng/L (<3.5-35.0)
== END 2023-08-16 16:08 | disposition home or self-care (01) ==
PROVIDERS: Physician Assistant Medical; Emergency Provider Emergency Medicine; PCP Internal Medicine Geriatric Medicine
DX: R07.89 Other chest pain (principal); R07.81 Pleurodynia; I49.8 Other specified cardiac arrhythmias; Z79.899 Other long term (current) drug therapy
CPT/HCPCS: 36415; 71046; 80048; 80307; 84484; 85025; 93005; 96372; 99284; J1885

== ENCOUNTER 2023-08-21 14:18 | Outpatient (REF) | payer MEDICAID, SELFPAY ==
[2023-08-21 16:15] LABS: MANUAL DIFF FLAG NO
[2023-08-21 20:52] LABS: Basophils Percent Auto 0.3 % (0-2); Eosinophils Absolute Auto 0.2 X10*3/uL (0.0-0.4); Eosinophils Percent Auto 1.3 % (0-4); Hemoglobin 13.7 g/dl (14.0-18.0); Imm Gran Abs Auto 0.05 X10*3/uL (0.00-0.03); Imm Gran Pct Auto 0.4 % (0.0-0.4); Lymphocytes Absolute Auto 2.7 X10*3/uL (1.2-4.9); Lymphocytes Percent Auto 22.4 % (20-40); Mean Corpuscular HGB Conc 31.9 g/dl (31.0-36.0); Mean Corpuscular Hemoglobin 28.5 pg (27.0-33.0); Mean Corpuscular Volume 89.6 fL (80.0-98.0); Mean Platelet Volume 12.1 fL (9.4-12.4); Monocytes Absolute Auto 0.9 X10*3/uL (0.1-1.2); Monocytes Percent Auto 7.8 % (2-11); Neutrophils Absolute Auto 8.1 x10*3/uL (2.0-8.3); Neutrophils Percent Auto 67.8 % (45-73); Platelet Count 212 X10*3/uL (160-400); White Blood Count 11.9 X10*3/uL (4.8-10.8)
[2023-08-26 12:21] LABS: H Pylori Breath Test Negative (Negative)
== END 2023-08-21 14:19 | disposition home or self-care (01) ==
LOC: HO.HHCL 14:18
PROVIDERS: Visit Provider Student in an Organized Health Care Education/Training Program
DX: R07.9 Chest pain, unspecified (principal); Z11.0 Encounter for screening for intestinal infectious diseases
CPT/HCPCS: 36415; 83013; 85025

== ENCOUNTER 2025-06-05 21:02 | Emergency (ER) | payer MEDICAID, SELFPAY ==
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
[2025-06-05 21:12] VITALS: BP 128/84; PULSE 104; RESP 18; TEMP 37.3; O2SAT 97; BMI 25.1
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
--- OUTSIDE RECORDS SUMMARY | 2025-06-05 22:16 | XMS_ITS | Clinical Summary ---
Author Organization [facility] ity Address [address] [place] [address] Care Team Providers Care Gimp Tacker Name Role Phone Unavailable Primary Care Provider Unavailabl e Social History Tobacco Use Types Packs/Day Years Used Date Smoking Tobacco: Never Assessed Sex and Gender Information Value Date Recorded Sex Assigned at Not on file Legal Sex Male 6:17 PM EST Gender Identity Not on file Sexual Orientation Not on file Plan of Treatment Health Maintenance Due Date Last Done Comments DTaP,Tdap,and Td Vaccines (1 - Tdap) 2007 Hepatitis B Vaccines (1 of 3 - 19+ 3-dose series) 2007 COVID-19 Vaccine (2023-2 5 season) 2024 Depression Screening 10/15/2024 Influenza Vaccine (#1) 2025 HIB Vaccines Aged Out No longer eligi ble based on patient's age to complete this topic HPV Vaccines Aged Out No longer eligi ble based on patient's age to complete this topic Hepatitis A Vaccines Aged Out No long er eligible based on patient's age to complete this topic IPV Vaccines Aged Out No longer eligi ble based on patient's age to complete this topic MMR Vaccines Aged Out No longer eligi ble based on patient's age to complete this topic Meningococcal ACWY Vaccine Aged Out N o longer eligible based on patient's age to complete this topic Meningococcal B Vaccine Aged Out No l onger eligible based on patient's age to complete this topic Pneumococcal Vaccine: Pediat rics (0 to 5 Years) and At-Risk Patients (6 to 49 Years) Aged Out No longer eligible b ased on patient's age to complete this topic RSV Immunization Patients Un naomi 20 months Aged Out No longer eligible b ased on patient's age to complete this topic Varicella Vaccines Aged Out No longer eligible based on patient's age to complete this topic
[2025-06-05 22:28] VITALS: BP 130/88; PULSE 96; RESP 15; TEMP 37.1; O2SAT 97
[2025-06-05 23:03] VITALS: BP 122/70; O2SAT 99
[2025-06-05 23:17] LABS: Glucose, Whole Blood 104 mg/dL (60-115)
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
[2025-06-05] MEDS: oxyCODONE HCl Immed Release 5 MG TABLET 10 MG PO (23:59)
--- NOTE | 2025-06-06 00:03 | PC.NURSE ---
Patient medicated per MAR for 10/10 pain in right ankle.
[2025-06-06 00:22] VITALS: BP 122/75; PULSE 72; RESP 16; TEMP 36.9; O2SAT 99
[2025-06-06 00:39] VITALS: BP 122/75; PULSE 75; RESP 16; TEMP 36.8; O2SAT 98
== END 2025-06-06 00:46 | disposition home or self-care (01) ==
PROVIDERS: Emergency Provider Emergency Medicine; PCP Internal Medicine Geriatric Medicine
DX: M25.571 Pain in right ankle and joints of right foot (principal); S40.811A Abrasion of right upper arm, initial encounter; S82.891D Other fracture of right lower leg, subsequent encounter for closed fracture with routine healing; Z87.828 Personal history of other (healed) physical injury and trauma
CPT/HCPCS: 73610; 73620; 82947; 99283; 99285

== ENCOUNTER → 2025-06-05 22:00 | Outpatient (BNV) | payer MEDICAID, SELFPAY | PROVIDERS: PCP Internal Medicine Geriatric Medicine; Visit Provider Radiology Neuroradiology | DX: S82.452A Displaced comminuted fracture of shaft of left fibula, initial encounter for closed fracture (principal); M79.671 Pain in right foot; R22.41 Localized swelling, mass and lump, right lower limb; V89.2XXA Person injured in unspecified motor-vehicle accident, traffic, initial encounter | CPT/HCPCS: 73610; 73620 ==

== ENCOUNTER 2025-06-29 08:28 | Outpatient (REF) | payer MEDICAID, SELFPAY ==
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
--- OUTSIDE RECORDS SUMMARY | 2025-06-29 09:31 | XMS_ITS | Clinical Summary ---
Author Organization [employer] [facility] ity Address [address] [place] [address] Care Team Providers Care Certified Ski Patroller Name Role Phone Unavailable Primary Care Provider [...] of 3 - 19+ 3-dose series) 2007 Depression Screening 10/15/2024 COVID-19 Vaccine (2023-2 5 season) 2025 Influenza Vaccine (#1) 2025 HIB Vaccines Aged [...]
--- OUTSIDE RECORDS SUMMARY | 2025-06-29 09:31 | XMS_ITS | Clinical Summary ---
Author Organization [facility] Address [address] [place] [address] Care Team Providers Care Code Enforcement Officer Name Role Phone ZachariahHusseinHunter EMILY Primary Care Provider [phone] Source Comments PLEASE NOTE, if this patient is a minor, it may be UNLAWFUL to discuss sensitive information that is contained in these records (such as FAMILY PLANNING, MENTAL HEALTH or SUBSTANCE ABUSE) with the minor patient's parent or other person without the patient's specific authorization.[facility] Allergies Active Allergy Reactions Criticality Noted Date Comments Acetaminophen 02/07/2016 Haloperidol 02/14/2019 Risperidone 02/14/2019 Medications omeprazole (PRILOSEC) [address] capsuleIndication s:Gastroesophagea l reflux disease without esophagitis Take 1 Cap by mouth every morning before breakfast. Do not crush or chew. 30 Cap 3 5 Active paroxetine (PAXIL) 40 mg tablet 3 5 Active doxepin (SINEQUAN) 150 mg capsule 0 5 Active doxepin (SINEQUAN) 100 mg capsule Take 200 mg by mouth once daily. 3 5 Active clonazePAM (KLONOPIN) 0.5 mg tablet 6 Active diazepam (VALIUM) 5 mg tablet 6 Active OLANZapine (ZYPREXA) 20 mg tablet 6 Active ibuprofen (ADVIL,MOTRIN) 600 mg tabletIndications :Testicular pain, left Take 1 Tab by mouth 4 (four) times daily as needed for pain. 40 Tab 0 6 Active prazosin (MINIPRESS) 5 mg capsule Take 5 mg by mouth nightly at bedtime. 2 6 Active albuterol sulfate hfa 90 mcg/actuation inhalerIndication s:Mild intermittent asthma without complication ([facility]) Inhale 2 Puffs into the lungs every 4 (four) hours as needed for shortness of breath or wheezing. 18 g 2 6 Active OLANZapine (ZYPREXA) 15 mg tabletIndications :Severe mood disorder with psychotic features ([facility] V24),Schizoaffect madina disorder, unspecified type ([facility]) TOME DOS TABLETAS POR V?A ORAL TODOS LOS D? AL ACOSTARSE 3 9 Active Active Problems Problem Noted Date Diagnosed Date Rib pain on right side 01/01/2018 Overview (01/01/2018): [facility] Diagnostic Imaging Department 12/23/2017 1.No right rib fracture is seen. 2.No active pulmonary process. Mild intermittent asthma ([facility]) 02/24/2016 Depression 02/07/2016 Schizoaffective disorder ([facility]) 016 Anxiety 02/07/2016 Gastroesophageal reflux disease without esophagi tis 02/07/2016 Obesity (BMI 30-39.9) 01/13/2016 Severe mood disorder with psychotic features ([facility] V24) 07/06/2015 Overview (10/27/2015): Dr [place] [address] [place] [address] leslee- Psychiatrist Isma Garcia- therapist. FOLLOWED BY LESLEE- Name: MIGUELANGEL JUAREZ Admit Date: 05/07/15 - 1990 - 24yrs Discharge Date: Location: [place] [id number] Report #: [id number] Date of Admission: 05/07/2015 This patient was interviewed with a Malagasy-speaking match maker. The Ayers warning was given to the patient, who appeared to understand the warning. SOURCE OF INFORMATION: The following information was obtained from the patient, Crisis evaluation, and previous records. CHIEF COMPLAINT: We have been sleeping in a park for three days. HISTORY OF PRESENT ILLNESS: This is a 24-year-old Malagasy-speaking only male who presented to the [facility] Emergency Room due to depression . He [...] The information the patient provided to this entry writer was not consistent with what he told Crisis. According to the Crisis evaluation, he presented with command auditory hallucinations that were telling him to kill himself. He never made any mention of command auditory hallucinations to this entry writer. He never made any mention of suicidal ideation either. DATA: Urine toxicology positive for cannabis. PAST PSYCHIATRIC HISTORY: The patient reports that he had been diagnosed with schizophrenia, bipolar and anxiety. He states that he has been receiving mental health in [place] since he was [age] years old. He currently has a psychiatrist and therapist through [facility]. He had been admitted to multiple psychiatric hospitals, including [facility] in January 2015, and facilities in [place]. He initially told this entry writer that he has been admitted places [...] the [place] in December 2014 from [place]. He is currently homeless. He had been living with his cousin but they were evicted from the apartment and had been staying with his cousin's daughter. He had received his GED but is currently unemployed. He states that he had been incarcerated in [place] for killing a cow . According to [...] MENTAL STATUS EXAMINATION: This is a 24-year-old Malagasy-speaking only male who is of large build [...] appear fair. FORMULATION: This is a 24-year-old Malagasy-speaking only male with a self-reported history of schizophrenia, bipolar, and anxiety who presented to the [facility] Emergency Room secondary to command auditory hallucinations and visual hallucinations according to the Crisis evaluation. He informed Crisis that the command auditory hallucinations were telling him to kill himself. He never mentioned command auditory hallucinations to this entry writer and stated that he had previously [...] having to answer questions and informed this entry writer that I could find this information in his previous records. He will be admitted to [address] [place] [address] for safety, stabilization and medication evaluation. DIAGNOSES AXIS I Adjustment disorder with mixed disturbances of emotion and conduct, rule out mood disorder AXIS II Cluster B personality traits AXIS III Asthma AXIS IV Homelessness, lack of day structure, lack of financial support AXIS V Current GAF 34, past year GAF 60 at time of discharge on 01/25/2015. INITIAL PLAN: 1. Admit to [address] [place] [address], 15-minute checks, CV accepted. 2. Individual/group and milieu therapy as tolerated. 3. Medication management per attending. 4. Vistaril 50 mg q6 hours p.r.n. anxiety/agitation Shannan Simpson PA-C Name: MIGUELANGEL JUAREZ Admit Date: 05/07/15 - 1990 - 24yrs Discharge Date: 05/13/15 Location: [address] P510-1 Report #: [id number] DATE OF DISCHARGE: 05/13/2015 For history of [...] closely involved and arranged for a homeless senior living. No abnormalities of vital signs, laboratory studies [...] impulse control or cognition. DISCHARGE IMPRESSION: 1. [place] I: Mood disorder with psychotic features. Adjustment disorder versus malingering. 2. [place] II: Deferred. 3. [place] III: Gastroesophageal reflux disease. 4. [place] IV: Homelessness. 5. 45 PLAN: Discharge to senior living per Social Work. Continue treatment at [facility], already established. MEDICATIONS ON DISCHARGE: Medications on discharge: 1. Doxepin 250 mg daily. 2. Risperidone 4 mg daily at bedtime. 3. Zolpidem 10 mg at bedtime. 4. Paroxetine 40 mg daily. 5. Clonazepam 1 mg daily. 6. Famotidine 20 mg twice a day. Deanna Fuentes MD Immunizations Immunization Administration Dates Next Due Hep A, adult 08/03/2016 Hep B, Adult/Adol (ROZZTIA-D-GLRYP/RECOMBIVAX-AD ULT) 08/03/2016 INFLUENZA, SEASONAL, INJECTABLE, PRESERVATIVE FR EE 08/03/2016,01/13/2016 PNEUMOCOCCAL POLYSACCHARIDE PPV23 (Pneumovax 23) 02/14/2019 TDAP 01/13/2016 Td (adult), 5 Lf tetanus tox oid (Tenivac), preservative free 02/24/2016 Family History Medical History Relation Name Comments Schizophrenia Brother No Known Problems Father Schizophrenia Mother Diabetes Paternal Grandmother Heart Problems Paternal Grandmother Relation Name Status Comments Brother Alive Father Alive Mother Alive Paternal Grandmother Alive Social History Tobacco Use Types Packs/Day Years Used Date Smoking Tobacco: Never Cigarettes Smokeless Tobacco: Never Tobacco Cessation:Counseling Given: No Alcohol Use Standard Drinks/Week Comments No 0 (1 standard drink = 0.6 oz pur e alcohol) Social Connections Answer Date Recorded Social Connections and Isolation 0 06/08/2019 Financial Resource Strain Answer Date R ecorded Financial Resource Strain 0 2018 Stress Answer Date Recorded Stress 0 06/08/2019 Physical Activity Answer Date Recorded Physical Activity 0 06/08/2019 Food Insecurity Answer Date Recorded Food 0 06/08/2019 Transportation Needs Answer Date Record ed Transportation 0 06/08/2019 Housing Stability Answer Date Recorded Housing 0 06/08/2019 Safety and Environment Answer Date Christopher rded Safety 0 06/08/2019 Utilities Answer Date Recorded Utilities 0 06/08/2019 Employment Answer Date Recorded Employment 0 06/08/2019 Sex and Gender Information Value Date Recorded Sex Assigned at Male 05/03/2018 12:31 PM PDT Legal Sex Male 7:39 AM PDT Gender Identity Male 05/03/2018 12:31 PM PDT Sexual Orientation Straight 12/09/2018 7: 31 AM PST Occupation Industry Job Start Date Job End Date disability Not on file Not on file Not on file Last Filed Vital Signs Vital Sign Reading Time Taken Comments Blood Pressure 136/82 02/14/2019 2:19 PM EDT Pulse 78 02/14/2019 2:19 PM EDT Temperature 36.9 C (98.4 F) 02/14/2019 2:19 PM EDT Respiratory Rate 20 02/14/2019 2:19 PM EDT Oxygen Saturation - - Inhaled Oxygen Concentration - - Weight 81.6 kg (180 lb) 02/14/2019 2:19 PM EDT Height 170.2 cm (5' 7 ) 02/14/2019 2:19 PM EDT Body Mass Index 28.19 02/14/2019 2:19 PM EDT Plan of Treatment Not on file Goals Goal Patient Goal Type Associated Problems Recent Progress Patient-Stated? Author take medication General Yes Graciela Ramirez PA-C Note: Maintain adherence to medication and therapy/psychiatry appts to avoid psych hospitalization. [facility] [place] [address] [facility] Care Teams Code Enforcement Officer Relationship Specialty Start Date End Date Hunter Soni NP [address] [place] [id number] PCP - General 08/22/18
== END 2025-06-29 08:29 | disposition home or self-care (01) ==
LOC: HO.HOSX 08:28
DX: Z13.89 Encounter for screening for other disorder (principal)

== ENCOUNTER 2025-07-28 15:09 | Outpatient (AMB) | payer MEDICAID, SELFPAY ==
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
[2025-07-28 15:24] VITALS: BP 129/77; PULSE 79; BMI 27.0
--- OUTSIDE RECORDS SUMMARY | 2025-07-28 18:02 | XMS_ITS | Clinical Summary ---
Author Organization [employer] Address [address] [facility] [address] [place] [address] Care Team Providers Care Switching Operator Name Role Phone Name, Jose Cruz URBAN Primary Care Provider [phone] Allergies No known active allergies Medications * [...] um Nitrate 1.1-5 % pasteIndications :Dental caries [place] teeth for 2 minutes, morning and night. [...] -thinks associated with pain referred today to plant quality manager -f PCP in 4 weeks to monitor [...] pain on right side 01/01/2018 Overview (04/03/2023): [facility] Diagnostic Imaging Department 12/23/2017 1.No right rib fracture is seen. 2.No active pulmonary process. Mild intermittent asthma 02/24/2016 Anxiety 02/07/2016 Gastroesophageal reflux disease without esophagi tis 02/07/2016 Schizoaffective disorder (CMS/HCC) 02/07/2016 Assessment & Plan (08/29/2023 9:40 AM EST): Problem List Items Addressed This Visit Other Anxiety Relevant Orders Referral to Behavioral Health Schizoaffective disorder (CMS/HCC) - Primary Relevant Orders Referral to Behavioral Health Severe mood disorder with psychotic features ([facility]) Relevant Orders Referral to Behavioral Health Cannabis use disorder Assessment & Plan (08/21/2023 6:44 PM EST): -lost psychiatrist apt -used to f at [facility] -Tomorrow apt w -will need referral from to start outpt psychotx and psychiatrist Obesity (BMI 30-39.9) 01/13/2016 Severe mood disorder with psychotic features Overview (04/03/2023): Dr Jack [address] [place] [address]- Psychiatrist Isma Garcia- therapist. FOLLOWED BY LESLEE- Name: ANA JUAREZ Admit Date: 05/07/15 - 1990 - 24yrs Discharge Date: Location: [address] P510-1 Report #: [id number] Date of Admission: 05/07/2015 This patient was interviewed with a British-speaking dry paste supervisor. The Ayers warning was given to the patient, who appeared to understand the warning. SOURCE OF INFORMATION: The following information was obtained from the patient, Crisis evaluation, and previous records. CHIEF COMPLAINT: We have been sleeping in a park for three days. HISTORY OF PRESENT ILLNESS: This is a 24-year-old British-speaking only male who presented to the [facility] Emergency Room due to depression . [...] The information the patient provided to this advertising copy writer was not consistent with what he told Crisis. According to the Crisis evaluation, he presented with command auditory hallucinations that were telling him to kill himself. He never made any mention of command auditory hallucinations to this advertising copy writer. He never made any mention of suicidal ideation either. DATA: Urine toxicology positive for cannabis. PAST PSYCHIATRIC HISTORY: The patient reports that he had been diagnosed with schizophrenia, bipolar and anxiety. He states that he has been receiving mental health in [place] since he was [age] years old. He currently has a psychiatrist and therapist through [facility]. He had been admitted to multiple psychiatric hospitals, including [facility] in January 2015, and facilities in [place]. He initially told this advertising copy writer that he has been admitted places [...] the [place] in December 2014 from [place]. He is currently homeless. He had been living with his cousin but they were evicted from the apartment and had been staying with his cousin's daughter. He had received his GED but is currently unemployed. He states that he had been incarcerated in [place] for killing a cow . According to [...] MENTAL STATUS EXAMINATION: This is a 24-year-old British-speaking only male who is of large build [...] appear fair. FORMULATION: This is a 24-year-old British-speaking only male with a self-reported history of schizophrenia, bipolar, and anxiety who presented to the [facility] Emergency Room secondary to command auditory hallucinations and visual hallucinations according to the Crisis evaluation. He informed Crisis that the command auditory hallucinations were telling him to kill himself. He never mentioned command auditory hallucinations to this advertising copy writer and stated that he had previously [...] having to answer questions and informed this advertising copy writer that I could find this information in his previous records. He will be admitted to [address] [place] [address] for safety, stabilization and medication evaluation. DIAGNOSES AXIS I Adjustment disorder with mixed disturbances of emotion and conduct, rule out mood disorder AXIS II Cluster B personality traits AXIS III Asthma AXIS IV Homelessness, lack of day structure, lack of financial support AXIS V Current GAF 34, past year GAF 60 at time of discharge on 01/25/2015. INITIAL PLAN: 1. Admit to [address] [place] [address], 15-minute checks, CV accepted. 2. Individual/group and milieu therapy as tolerated. 3. Medication management per attending. 4. Vistaril 50 mg q6 hours p.r.n. anxiety/agitation Shannan Simpson PA-C Name: ANA JUAREZ Admit Date: 05/07/15 - 1990 - 24yrs Discharge Date: 05/13/15 Location: [place] [id number] Report #: [id number] DATE OF DISCHARGE: 05/13/2015 For history of [...] closely involved and arranged for a [place]. No abnormalities of vital signs, laboratory studies [...] impulse control or cognition. DISCHARGE IMPRESSION: 1. [place] I: Mood disorder with psychotic features. Adjustment disorder versus malingering. 2. [place] II: Deferred. 3. [place] III: Gastroesophageal reflux disease. 4. [place] IV: Homelessness. 5. 45 PLAN: [place] per Social Work. Continue treatment at [facility], already established. MEDICATIONS ON DISCHARGE: Medications on discharge: 1. Doxepin 250 mg daily. 2. Risperidone 4 mg daily at bedtime. 3. Zolpidem 10 mg at bedtime. 4. Paroxetine 40 mg daily. 5. Clonazepam 1 mg daily. 6. Famotidine 20 mg twice a day. Deanna Fuentes MD Assessment & Plan (09/04/2023 8:47 AM EST): Assessment: Patient arrived at [facility] requesting to speak with this [facility] as he needed help being connected to therapist and psychiatrist. Patient is experiencing high levels of anxiety, AH, VH, and possible delusion. No risk for self-harm, SI, or HI. [facility] provided patient information for [facility] and was highly recommended to go. At this time Ana Raya meets criteria for Visit Diagnoses: Problem List Items Addressed This Visit Other Schizoaffective disorder (CMS/HCC) Severe mood disorder with psychotic features (CMS/HCC) Cannabis use disorder Patient ready to address current needs Yes Strengths include ability to request support PLAN: 1. Follow up with [facility]: Recommended for follow-up: As needed 2. Patient goal is to be connected to a psychiatrist and therapist 3. Behavioral Recommendations a. Utilize [facility] for sooner psychiatry appointment b. Reach out to [facility] if additional support is needed c. Engaged [...] being born. PLAN: 1. Follow up with [facility]: Recommended for follow-up: As needed 2. Patient goal is to engage in OP therapy services and medication management 3. Behavioral Recommendations a. OP therapy and psychiatry referral to [facility] complete b. Community health worker referral complete c. Contact information given in case questions or concerns arise Encounters * This document contains information received from the source organization and may not represent a complete record from that organization. Date Type Department Care Team Description 06/05/2025 Orders Only GENERIC EXTERNAL DATA DEPARTMENT Provider, Generic External Data 05/07/2025 1:00 PM EDT Office Visit [facility] [place] [address] Jose Salas MD Right inguinal hernia (Primary [...] with others, in a hotel, in a [place], living outside on the street, on a [...] Whole Blood 104 60 - 115 mg/dL [facility] Comment:METER #: [id number] 06/05/2025 11:0 3 PM EDT 06/05/2025 11:17 PM EDT us Generic External Data Provider LAB BLOOD ORDERAB LES Final Result [facility] [address] [place] [phone] * XR Foot 1-2 Views Right (06/05/2025 10:53 PM EDT) Anatomical Region Laterality Modality Lower Extremities, Foot Right Radiogra phic Imaging 06/05/2025 10:5 3 PM EDT Narrative 06/05/2025 10:54 PM EDT [address] [address] XRay Report Signed Patient: Ana Rodrigues MR#: [id number] : 1990 Acct:[id number] Age/Sex: 34 / M ADM Date: 06/05/25 Loc: HO.ED Attending Dr: Ordering Physician: Generic ED Physician Date of Service: 06/05/25 Procedure(s): XR foot RT 2V Accession Number(s): [id number] cc: Generic ED Physician; Name,Jose Cruz URBAN [...] in OV> 06/05/254 DD/ 52 TD/TT: 06/05/252252 Perl Developer: Procedure Note Donotuseinterpreter, Image - 06/05/2025 [facility] [address] [place] [address] XRay Report Signed Patient: Ana Rodrigues LMR#: [id number] : 1990Acct:[id number] Age/Sex: 34 / MADM Date: 06/05/25 Loc: HO.ED Attending Dr: Ordering Physician: Generic ED Physician Date of Service: 06/05/25 Procedure(s): XR foot RT 2V Accession Number(s): [id number] cc: Generic ED Physician; Name,Jose Cruz URBAN [...] in OV> 06/05/252253 DD/ 52 TD/TT: 06/05/252252 Perl Developer: [employer] External Provider IMG XR PROCEDURES Edited Result - Final * XR Ankle 3+ Views Right (06/05/2025 10:50 PM EDT) Anatomical Region Laterality Modality Lower Extremities, Ankle Right Radiogr aphic Imaging 06/05/2025 10:5 0 PM EDT Narrative 06/05/2025 10:51 PM EDT [place] [address] XRay Report Signed Patient: Ana Rodrigues MR#: [id number] : 1990 Acct:[id number] Age/Sex: 34 / M ADM Date: 06/05/25 Loc: HO.ED Attending Dr: Ordering Physician: Generic ED Physician Date of Service: 06/05/25 Procedure(s): XR ankle RT min 3V Accession Number(s): [id number] cc: Generic ED Physician; Name,Jose Cruz URBAN [...] due to small avulsion from ventral tibia. Vnqjwyvt-hd-aryvu effusion present. Soft tissue swelling noted. No [...] in OV> 06/05/252250 DD/ 49 TD/TT: 06/05/252249 Perl Developer: Procedure Note Donotuseinterpreter, Image - 06/05/2025 [place] [address] XRay Report Signed Patient: Ana Rodrigues LMR#: [id number] : 1990Acct:[id number] Age/Sex: 34 / MADM Date: 06/05/25 Loc: .ED Attending Dr: Ordering Physician: Generic ED Physician Date of Service: 06/05/25 Procedure(s): XR ankle RT min 3V Accession Number(s): [id number] cc: Generic ED Physician; Name,Jose Cruz URBAN [...] due to small avulsion from ventral tibia. Eckplmpn-ip-hhurz effusion present. Soft tissue swelling noted. No [...] in OV> 06/05/252250 DD/ 49 TD/TT: 06/05/252249 Perl Developer: [employer] External Provider IMG XR PROCEDURES Edited Result [...] LDL-C. Henry SS et al. ROXANA. 2013;310(19): 9211-1285 (http://education.[employer]ashou.com/faq/MLP929) Non-HDL Cholesterol 130(H) <130 mg/dL (calc) FOUNDATION [...] LDL-C. Henry SS et al. ROXANA. 2013;310(19): 3308-1120 (http://education.[employer]ash[employer].com/faq/PGK804) Non-HDL Cholesterol 130(H) <130 mg/dL (calc) FOUNDATION [...] LDL-C. Henry SS et al. ROXANA. 2013;310(19): 7556-9711 (http://education.[employer]ashou.com/faq/BZO413) Non-HDL Cholesterol 130(H) <130 mg/dL (calc) FOUNDATION [...] Resul t [facility] [address] from Last 3 Months or Most Recently Relevant to Health Maintenance Insurance [place] [facility] STAND ADULT Care Teams Switching Operator Relationship Specialty Start Date End Date Name, MD Jose Cruz [address] [place] [id number] PCP - General Family Medicine 05/08/19
--- OUTSIDE RECORDS SUMMARY | 2025-07-28 18:02 | XMS_ITS | Clinical Summary ---
Author Organization [facility] Address [address] [place] [address] Care Team Providers Care Child Development Consultant Name Role Phone ZachariahHusseinHunter EMILY Primary Care Provider [phone] Source Comments PLEASE NOTE, if this patient [...] mcg/actuation inhalerIndication s:Mild intermittent asthma without complication Inhale 2 Puffs into the lungs every 4 (four) hours as needed for shortness of breath or wheezing. 18 g 2 6 Active OLANZapine (ZYPREXA) 15 mg tabletIndications :Severe mood disorder with psychotic features,Schizoaf fective disorder, unspecified type TOME DOS TABLETAS POR V?A ORAL TODOS LOS D? AL ACOSTARSE 3 9 Active Active Problems Problem Noted Date Diagnosed Date Rib pain on right side 01/01/2018 Overview (01/01/2018): [facility] Diagnostic Imaging Department 12/23/2017 1.No right rib fracture is seen. 2.No active pulmonary process. Mild intermittent asthma 02/24/2016 Depression 02/07/2016 Schizoaffective disorder 02/07/2016 Anxiety 02/07/2016 Gastroesophageal reflux disease without esophagi tis 02/07/2016 Obesity (BMI 30-39.9) 01/13/2016 Severe mood disorder with psychotic features Overview (10/27/2015): Dr Jack [address] [place] [address] leslee- Psychiatrist Isma Garcia- therapist. FOLLOWED BY LESLEE- Name: MIGUELANGEL JUAREZ Admit Date: 05/07/15 - 1990 - 24yrs Discharge Date: Location: [address] Report #: [id number] Date of Admission: 05/07/2015 This patient was interviewed with a [place] Citizen-speaking pension agent. The Ayers warning was given to the patient, who appeared to understand the warning. SOURCE OF INFORMATION: The following information was obtained from the patient, Crisis evaluation, and previous records. CHIEF COMPLAINT: We have been sleeping in a park for three days. HISTORY OF PRESENT ILLNESS: This is a 24-year-old [place] Citizen-speaking only male who presented to the [facility] Emergency Room due to depression . [...] The information the patient provided to this director underwriter sales was not consistent with what he told Crisis. According to the Crisis evaluation, he presented with command auditory hallucinations that were telling him to kill himself. He never made any mention of command auditory hallucinations to this director underwriter sales. He never made any mention of suicidal ideation either. DATA: Urine toxicology positive for cannabis. PAST PSYCHIATRIC HISTORY: The patient reports that he had been diagnosed with schizophrenia, bipolar and anxiety. He states that he has been receiving mental health in [place] since he was [age] years old. He currently has a psychiatrist and therapist through [facility]. He had been admitted to multiple psychiatric hospitals, including [facility] in January 2015, and facilities in [place]. He initially told this director underwriter sales that he has been admitted places since [...] SOCIAL HISTORY: The patient moved to the [facility] in December 2014 from [place]. He is currently homeless. He had been living with his cousin but they were evicted from the apartment and had been staying with his cousin's daughter. He had received his GED but is currently unemployed. He states that he had been incarcerated in [place] for killing a cow . According to [...] MENTAL STATUS EXAMINATION: This is a 24-year-old [place] Citizen-speaking only male who is of large build [...] appear fair. FORMULATION: This is a 24-year-old [place] Citizen-speaking only male with a self-reported history of schizophrenia, bipolar, and anxiety who presented to the [facility] Emergency Room secondary to command auditory hallucinations and visual hallucinations according to the Crisis evaluation. He informed Crisis that the command auditory hallucinations were telling him to kill himself. He never mentioned command auditory hallucinations to this director underwriter sales and stated that he had previously heard [...] having to answer questions and informed this director underwriter sales that I could find this information in his previous records. He will be admitted to [address] [place] [address] for safety, stabilization and medication evaluation. DIAGNOSES AXIS I Adjustment disorder with mixed disturbances of emotion and conduct, rule out mood disorder AXIS II Cluster B personality traits AXIS III Asthma AXIS IV Homelessness, lack of day structure, lack of financial support AXIS V Current GAF 34, past year GAF 60 at time of discharge on 01/25/2015. INITIAL PLAN: 1. Admit to [address] [place] [address], 15-minute checks, CV accepted. 2. Individual/group and milieu therapy as tolerated. 3. Medication management per attending. 4. Vistaril 50 mg q6 hours p.r.n. anxiety/agitation Shannan Simpson PA-C Name: MIGUELANGEL JUAREZ Admit Date: 05/07/15 - 1990 - yrs Discharge Date: 05/13/15 Location: DIATM1G - P510-1 Report #: [id number] DATE OF DISCHARGE: 05/13/2015 For history of [...] closely involved and arranged for a homeless half-way. No abnormalities of vital signs, laboratory studies [...] impulse control or cognition. DISCHARGE IMPRESSION: 1. [place] I: Mood disorder with psychotic features. Adjustment disorder versus malingering. 2. [place] II: Deferred. 3. [place] III: Gastroesophageal reflux disease. 4. [place] IV: Homelessness. 5. 45 PLAN: Discharge to half-way per Social Work. Continue treatment at [facility], already established. MEDICATIONS ON DISCHARGE: Medications on discharge: 1. Doxepin 250 mg daily. 2. Risperidone 4 mg daily at bedtime. 3. Zolpidem 10 mg at bedtime. 4. Paroxetine 40 mg daily. 5. Clonazepam 1 mg daily. 6. Famotidine 20 mg twice a day. Deanna Fuentes MD Immunizations Immunization Administration Dates Next Due Hep A, adult 08/03/2016 Hep B, Adult/Adol ([id number]/RECOMBIVAX-AD ULT) 08/03/2016 INFLUENZA, SEASONAL, INJECTABLE, PRESERVATIVE FR [...] and therapy/psychiatry appts to avoid psych hospitalization. [facility] Care Teams Child Development Consultant Relationship Specialty Start Date End Date Hunter Soni NP [address] [place] [address] PCP - General 08/22/18
== END 2025-07-28 15:35 | disposition home or self-care (01) ==
LOC: HO.HGS 15:10
PROVIDERS: PCP Internal Medicine Geriatric Medicine; Visit Provider Surgery
DX: K40.90 Unilateral inguinal hernia, without obstruction or gangrene, not specified as recurrent (principal)
CPT/HCPCS: 99204

== ENCOUNTER → 2025-07-28 15:09 | Outpatient (BNVA) | payer MEDICAID, SELFPAY | PROVIDERS: PCP Internal Medicine Geriatric Medicine; Visit Provider Surgery | DX: Z01.818 Encounter for other preprocedural examination (principal); K40.90 Unilateral inguinal hernia, without obstruction or gangrene, not specified as recurrent | CPT/HCPCS: 99202 ==